=== PATIENT | male | born 1995 | race Caucasian/White ===

== ENCOUNTER 2019-06-18 19:46 | Emergency (ER) | payer BC ==
--- NOTE | 2019-06-18 20:13 | EDM.PDOC ---
ED HPI GENERAL MEDICAL PROBLEM - General Chief Complaint: Laceration Stated Complaint: HEAD LACERATION FROM FALL Time Seen by Provider: 06/18/19 19:53 Source of Information: Reports: Patient, RN Notes Reviewed History Limitations: Reports: No Limitations - History of Present Illness INITIAL COMMENTS - FREE TEXT/NARRATIVE: Patient is a 24-year-old male who presents to the ED for a facial laceration. Patient states he was at home, and when he slipped and fell down about 5 steps, and ended up hitting the bridge of his nose onto the windowsill. This resulted in a 1 cm laceration to the bridge of the nose, between the eyes. There is a little bit of bleeding, but no gush of bleeding. He did have a bloody nose after the fall, but this has resolved. He is not complaining of any loss of consciousness, he is denying any neck pain or back pain, but states he is having a mild headache with this. He did not take any sort of pain medication prior to arrival to the ER. He states he was not drinking alcohol prior to this injury. He states he has no other past medical history, he does not take any regular medications. He denies any blurred vision, double vision, dizziness , nausea. Patient believes he is up-to-date on his tetanus immunization. Nose Pain Score (Numeric/FACES): 10 - Related Data Allergies Allergy/AdvReac Type Severity Reaction Status Date / Time No Known Allergies Allergy Verified 06/18/19 19:52 Home Meds: Home Meds Acetaminophen/HYDROcodone [[place] 325-5 MG] 1 tab PO Q6H PRN #12 tablet 06/18/19 [Rx] cephALEXin [Cephalexin] 500 mg PO BID #14 capsule 06/18/19 [Rx] Past Medical History - Past Health History Medical/Surgical History: Denies Medical/Surgical History Social & Family History - Tobacco Use Smoking Status *Q: Former Smoker Used Tobacco, but Quit: Yes - Caffeine Use Caffeine Use: Reports: Coffee - Recreational Drug Use Recreational Drug Use: No ED ROS GENERAL - Review of Systems Review Of Systems: Comprehensive ROS is negative, except as noted in HPI. ED EXAM, SKIN/RASH Exam: See Below Exam Limited By: No Limitations General Appearance: Alert, WD/WN, No Apparent Distress Eye Exam: Bilateral Eye: EOMI, Normal Inspection, PERRL Ears: Normal External Exam, Normal Canal, Hearing Grossly Normal, Normal TMs Nose: Normal Mucosa, Nasal Tenderness (over bridge of nose), Nasal Deformity ( mild lateral deformity over bridge of nose), Nasal Swelling (mild over the bridge of nose) Throat/Mouth: Normal Inspection, Normal Lips, Normal Teeth, Normal Gums, Normal Oropharynx, Normal Voice, No Airway Compromise Head: Atraumatic, Normocephalic Neck: Normal Inspection Respiratory/Chest: No Respiratory Distress, Lungs Clear, Normal Breath Sounds, No Accessory Muscle Use, Chest Non-Tender Cardiovascular: Normal Peripheral Pulses, Regular Rate, Rhythm, No Murmur Peripheral Pulses: 3+: Radial (L), Radial (R) Extremities: Normal Inspection, Normal Capillary Refill Neurological: Alert, Oriented, CN II-XII Intact (grossly), Normal Cognition, No Motor/Sensory Deficits Psychiatric: Normal Affect, Normal Mood Skin: Warm, Dry, Normal Color, No Rash, Wound/Incision (1 cm longitudinal/ diagonal laceration to the bridge of the nose, between the eyes. Mild amount of bleeding appreciated.) ED SKIN PROCEDURES - Laceration/Wound Repair Medial Nose Appearance: Superficial, Linear, Clean Distal NVT: Neuro & Vascular Intact, No Tendon Injury Skin Prep: Chlorhexidine (Hibiciens), Saline Exploration/Debridement/Repair: Wound Explored, In a Bloodless Field, Explored to Base, No Foreign Material Found Closed with: Dermabond Lac/Wound length In cm: 1 Sterile Dressing Applied: Nurse Tetanus Status Addressed: Yes Complications: No Course - Vital Signs Last Recorded V/S: Last Vital Signs Temp 98.4 F 06/18/19 19:53 Pulse 73 06/18/19 19:53 Resp 12 06/18/19 19:53 BP 141/80 H 06/18/19 19:53 Pulse Ox 100 06/18/19 19:53 - Orders/Labs/Meds Orders: Active Orders 24 hr Category Date Time Status Nasal Bone Min 3V [CR] Stat Exams 06/18/19 20:06 Ordered Meds: Medications Discontinued Medications Generic Name Dose Route Start Last Admin Trade Name Freq PRN Reason Stop Dose Admin Lidocaine HCl 10 ml 06/18/19 20:07 06/18/19 21:13 Xylocaine 1% INJECT 06/18/19 20:08 Not Given ONETIME ONE - Re-Assessments/Exams Free Text/Narrative Re-Assessment/Exam: 06/18/19 20:14 Presents to the ED for nasal laceration. I did order nasal bone x-ray for further evaluation of possible broken nasal bones. 06/18/19 21:11 Nasal bone x-ray does demonstrate a comminuted beak fracture. Orbits and sinuses appear intact. No other fracture or abnormality appreciated, reviewed by myself and Dr. Laureano. Official radiology read is pending. I will have radiology provide the patient with a DVD or CD of his films for referral to ENT as he would like the nasal bone set, and have his nose straightened out. Departure - Departure Time of Disposition: 20:15 Disposition: Home, Self-Care 01 Condition: Fair Clinical Impression: Simple laceration of nose Broken nose Qualifiers: Encounter type: initial encounter Fracture type: open Qualified Code(s): S02.2XXB - Fracture of nasal bones, initial encounter for open fracture - Discharge Information *PRESCRIPTION DRUG MONITORING PROGRAM REVIEWED*: No *COPY OF PRESCRIPTION DRUG MONITORING REPORT IN PATIENT EMILY: No Prescriptions: Acetaminophen/HYDROcodone [[place] 325-5 MG] 1 tab PO Q6H PRN #12 tablet PRN Reason: Pain cephALEXin [Cephalexin] 500 mg PO BID #14 capsule Instructions: Rhinoplasty, Facial Laceration, [id number] Referrals: PCP,None [Primary Care Provider] - Forms: ED Department Discharge Additional Instructions: You have been evaluated in the ED for your laceration. Your nasal bone x-rays do demonstrate a comminuted fracture of your nasal bridge bones. You were provided with a CD of the images to take to the ENT for further evaluation and management. Recommend [facility], their number is , you should call there tomorrow morning for further evaluation. As you have a laceration over a broken bone this is considered an open fracture of sorts, you will need to take some outpatient antibiotics. Please take 1 tab Keflex 2 times a day for the next 7 days. You were also given a prescription for some pain medications, to take when the Tylenol/ibuprofen do not provide enough pain relief. Recommend you take 5 1 mg Tylenol or 6 mg ibuprofen every 6 hours for further pain relief, do not exceed 4000 mg Tylenol or 3200 mg ibuprofen in a 24-hour time span. You may take the hydrocodone/acetaminophen 5/ 325mg, 1 tab every 6 hours as needed for pain not relieved by Tylenol or ibuprofen alone. Your wound was repaired with Dermabond, this is a medical grade skin adhesive. This will wear off by itself in a few days. Please keep this area clean and dry, you may cleanse with regular soap and water. No vigorous scrubbing. You may use ice to the area as tolerated to provide further swelling relief. Please return to ED if your symptoms change or worsen. Sepsis Event Note - Evaluation Sepsis Screening Result: No Definite Risk - Focused Exam Vital Signs: Vital Signs Temp Pulse Resp BP Pulse Ox 06/18/19 19:53 98.4 F 73 12 141/80 H 100 Date Exam was Performed: 06/18/19 Time Exam was Performed: 21:15 - My Orders Last 24 Hours: My Active Orders 06/18/19 20:06 Nasal Bone Min 3V [CR] Stat - Assessment/Plan Last 24 Hours: My Active Orders 06/18/19 20:06 Nasal Bone Min 3V [CR] Stat
[2019-06-18] MEDS: Lidocaine 1% 10 ML MDV INJECT ONE ×2 (20:15→21:13)
--- NOTE | 2019-06-19 07:36 | CR ---
Nasal bone: Three views of the nasal bones were obtained. Comparison: No previous nasal bone study. Slightly comminuted and minimally displaced nasal bone fracture is seen. Visualized sinuses are clear. Other visualized bony structures are unremarkable. Impression: 1. Nasal bone fracture as noted above. Diagnostic code #3 This report was dictated in MDT
== END 2019-06-18 20:25 | disposition home or self-care (01) ==
LOC: JD.ED 19:46
DX: S02.2XXB Fracture of nasal bones, initial encounter for open fracture (principal); Z87.891 Personal history of nicotine dependence; W10.9XXA Fall (on) (from) unspecified stairs and steps, initial encounter
CPT/HCPCS: 12011; 70160; 70160-26; 99283; 99283-25; J2001